=== PATIENT | female | born 1960 | race Caucasian/White ===

== ENCOUNTER → 2017-11-23 | Outpatient (CLI) | payer OTHER ==
[~2017-11-23] MED LIST: CYMBALTA60 MG PO; DILTIAZEM240 MG PO; HUMALOG100 U/ML SC; LANTUS100 U/ML SQ; OXYCODONE5 MG PO; SYNTHROID0.125 MG PO; VICOPROFEN 201 UDTAB PO
== END ==
LOC: ZCOL.LAB 15:59
DX: Z74.8 Other problems related to care provider dependency (principal)

== ENCOUNTER → 2017-11-26 | Outpatient (REF) | LOC: ZMSC 13:19 | DX: Z01.89 Encounter for other specified special examinations (principal) ==

== ENCOUNTER 2018-04-15 08:48 | Day surgery (SDC) | payer OTHER ==
[~2018-04-15] VITALS: Ht 177.8 cm; Wt 71.8 kg
[2018-04-15 10:09] VITALS: BP 122/72; PULSE 89; TEMP 98
[2018-04-15] MEDS ORDERED: LYRICA 150MG C150 MG PO (10:23)
[2018-04-15] MEDS ORDERED: SYNTHROID0.137 MG PO (10:24)
[2018-04-15] MEDS ORDERED: TRILIPIX 135MG PO (10:24)
[2018-04-15] MEDS ORDERED: NORCO 325 MG-51 TAB PO (10:25)
[2018-04-15] MEDS ORDERED: NORVASC 5MG5 MG/TAB PO (10:26)
[2018-04-15] MEDS ORDERED: TOPROL XL 25MG25 MG PO (10:26)
[2018-04-15] MEDS ORDERED: PRIL40 PO (10:27)
[2018-04-15] MEDS ORDERED: PROTONIX20 MG PO (10:27)
[2018-04-15] MEDS ORDERED: LEVEMIR100 U/ML SQ ×2 (10:29→10:30)
[2018-04-15 11:45] VITALS: BP 110/62; PULSE 80; TEMP 97.5
[2018-04-15 12:00] VITALS: BP 120/69; PULSE 88
[2018-04-15 12:15] VITALS: BP 126/68; PULSE 84
== END 2018-04-15 12:30 | disposition home or self-care (01) ==
LOC: SDCO 08:48
DX: K29.30 Chronic superficial gastritis without bleeding (principal); K21.9 Gastro-esophageal reflux disease without esophagitis; E11.9 Type 2 diabetes mellitus without complications; E03.9 Hypothyroidism, unspecified; F32.9 Major depressive disorder, single episode, unspecified; R94.5 Abnormal results of liver function studies; Z90.49 Acquired absence of other specified parts of digestive tract; Z88.5 Allergy status to narcotic agent; Z85.41 Personal history of malignant neoplasm of cervix uteri; Z90.710 Acquired absence of both cervix and uterus
CPT/HCPCS: OP; J2250; J2405; J3010; J7030